=== PATIENT | male | born 1995 | race African-American/Black ===

== ENCOUNTER → 2020-05-24 | Outpatient (CLI) | payer OTHER ==
[2020-05-24 08:03] LABS: BASO # 0.1 x10^3/uL (0.0-0.2); BASO % 1 % (0-3); EOS # 0.4 x10^3/uL (0.0-0.7); EOS % 4 % (0-3); HEMOGLOBIN 15.6 g/dL (13.0-17.5); LYMPH # 3.2 x10^3/uL (1.0-4.8); LYMPH % 38 % (24-48); MEAN CORPUSCULAR HEMOGLOBIN 30 pg (25-35); MEAN CORPUSCULAR HGB CONC 34 g/dL (31-37); MEAN CORPUSCULAR VOLUME 87 fL (79-100); MONO # 0.7 x10^3/uL (0.0-1.1); MONO % 9 % (0-9); NEUT % 48 % (31-73); PLATELET COUNT 277 x10^3/uL (140-400); RED BLOOD COUNT 5.27 x10^6/uL (4.30-5.70); RED CELL DISTRIBUTION WIDTH 13.1 % (11.5-14.5); WHITE BLOOD COUNT 8.4 x10^3/uL (4.0-11.0)
[2020-05-24 08:25] LABS: ALBUMIN 3.9 g/dL (3.4-5.0); ALBUMIN/GLOBULIN RATIO 1.1 (1.0-1.7); CALCIUM 9.7 mg/dL (8.5-10.1); CHOLESTEROL/HDL RATIO 4.6; CREATININE 0.8 mg/dL (0.7-1.3); TOTAL BILIRUBIN 0.4 mg/dL (0.2-1.0); TOTAL PROTEIN 7.4 g/dL (6.4-8.2)
[2020-05-24 08:26] LABS: FREE T4 1.17 ng/dL (0.76-1.46); THYROID STIM HORMONE (TSH) 1.117 uIU/mL (0.358-3.74)
== END | disposition home or self-care (01) ==
LOC: LAB 07:32
PROVIDERS: ATTEND Family Medicine
DX: I10 Essential (primary) hypertension (principal)
CPT/HCPCS: 36415; 80053; 80061; 84439; 84443; 85025

== ENCOUNTER → 2020-06-01 | Outpatient (CLI) | payer OTHER ==
[2020-06-01 10:22] LABS: DIRECT BILIRUBIN 0.2 mg/dL (0.0-0.2); TOTAL BILIRUBIN 0.6 mg/dL (0.2-1.0); TOTAL PROTEIN 8.2 g/dL (6.4-8.2)
== END | disposition home or self-care (01) ==
LOC: LAB 07:31
PROVIDERS: ATTEND Family Medicine
DX: R94.5 Abnormal results of liver function studies (principal)
CPT/HCPCS: 36415; 80076; 86704; 86803; 87340

== ENCOUNTER → 2020-06-17 | Outpatient (CLI) | payer OTHER ==
[2020-06-17 09:08] LABS: CALCIUM 9.5 mg/dL (8.5-10.1); CREATININE 0.8 mg/dL (0.7-1.3); POTASSIUM 3.5 mmol/L (3.5-5.1)
== END | disposition home or self-care (01) ==
LOC: LAB 08:15
PROVIDERS: ATTEND Nurse Practitioner Gerontology
DX: I10 Essential (primary) hypertension (principal)
CPT/HCPCS: 36415; 80048

== ENCOUNTER → 2020-06-22 | Outpatient (CLI) | payer OTHER ==
--- NOTE | 2020-06-22 09:20 | RAD ---
Limited abdominal ultrasound INDICATION: Elevated liver function tests TECHNIQUE: Grayscale and color Doppler imaging of the right upper quadrant abdomen was performed. FINDINGS: The liver measures 15.7 cm and shows diffuse increased echogenicity compatible with moderate fatty infiltration. No nodular contour or masses are identified. The gallbladder is contracted and shows variable wall thickness with no obvious gallbladder wall thickening. Negative sonographic Nur sign. No stones or sludge identified. No intra or extrahepatic biliary dilation with the common bile duct measuring 1.6 mm. Visualized pancreas is unremarkable. The IVC is unremarkable. Abdominal aorta is partially obscured by bowel gas. Normal caliber in the visualized portions proximally. IMPRESSION: 1. Fatty liver. 2. Contracted gallbladder. This despite patient being in a reported fasting state. If gallbladder dysfunction is suspected, a HIDA scan could be considered in further evaluation. Electronically signed by: Vinay Blevins MD (06/22/2020 9:18 AM) [id number]
== END | disposition home or self-care (01) ==
LOC: US 08:00
PROVIDERS: ATTEND Family Medicine
DX: K76.0 Fatty (change of) liver, not elsewhere classified (principal); R94.5 Abnormal results of liver function studies
CPT/HCPCS: 76705

== ENCOUNTER → 2020-07-06 | Outpatient (CLI) | payer OTHER ==
--- NOTE | 2020-07-06 11:38 | CARD ---
MR#: [id number] Date of Study: 07/06/2020 Ordering Physician: VALERIE BEST, Referring Physician: VALERIE BEST, Tech: Rocio Slade [facility] APPROVED REPORT EXAM: Two-dimensional and M-mode echocardiogram with Doppler and color Doppler. Other Information Quality : Good INDICATION Hypertension/HCVD 2D DIMENSIONS RVDd2.6 (2.9-3.5cm)Left Atrium(2D)3.1 (1.6-4.0cm) IVSd1.8 (0.7-1.1cm)Aortic Root(2D)3.0 (2.0-3.7cm) LVDd4.2 (3.9-5.9cm)LVOT Diameter2.3 (1.8-2.4cm) PWd1.3 (0.7-1.1cm)LVDs2.5 (2.5-4.0cm) FS (%) 30.0 %SV54.2 ml LVEF(%)60.0 (>50%) Aortic Valve AoV Peak Isidro.147.5cm/sAoV VTI21.4cm AO Peak GR.8.7mmHgLVOT Peak Isidro.108.0cm/s AO Mean GR.5mmHgAVA (VMAX)2.97cm2 RAYSHAWN (VTI)3.60cm2 Mitral Valve MV E Cfsvfsdq483.4cm/sMV DECEL [id number] MV A Xemzyaqk35.0cm/sE/A Ratio2.0 Pulmonary Vein S1 Bdafmyke89.8cm/sD2 Dbirmrip96.5cm/s LEFT VENTRICLE The left ventricle is normal size. There is normal left ventricular wall thickness. The left ventricu lar systolic function is normal and the ejection fraction is within normal range. The Ejection Fracti on is 55-60%. There is normal LV segmental wall motion. The left ventricular diastolic function and f illing is normal for age. RIGHT VENTRICLE The right ventricle is normal size. The right ventricular systolic function is normal. ATRIA The left atrium size is normal. The right atrium size is normal. The interatrial septum is intact wit h no evidence for an atrial septal defect or patent foramen ovale as noted on 2-D or Doppler imaging. AORTIC VALVE The aortic valve is normal in structure and function. Doppler and Color Flow revealed no significant aortic regurgitation. There is no significant aortic valvular stenosis. MITRAL VALVE The mitral valve is normal in structure and function. There is no evidence of mitral valve prolapse. There is no mitral valve stenosis. Doppler and Color Flow revealed no mitral valve regurgitation note d. TRICUSPID VALVE The tricuspid valve is normal in structure and function. Doppler and Color Flow revealed no tricuspid valve regurgitation noted. There is no tricuspid valve stenosis. PULMONIC VALVE The pulmonary valve is normal in structure and function. Doppler and Color Flow revealed trace pulmon ic valvular regurgitation. There is no pulmonic valvular stenosis. GREAT VESSELS The aortic root is normal in size. The ascending aorta is normal in size. The IVC is normal in size a nd collapses >50% with inspiration. PERICARDIAL EFFUSION There is no evidence of significant pericardial effusion. Critical Notification Critical Value: No <Conclusion> The left ventricle is normal size. The left ventricular systolic function is normal and the ejection fraction is within normal range. The Ejection Fraction is 55-60%. There is normal LV segmental wall motion. There is normal left ventricular wall thickness. Doppler and Color Flow revealed no significant aortic regurgitation. There is no significant aortic valvular stenosis. Doppler and Color Flow revealed no mitral valve regurgitation noted. Doppler and Color Flow revealed no tricuspid valve regurgitation noted. Signed by : Ramiro Robert MD Electronically Approved : 07/06/2020 11:38:02
== END ==
LOC: ECHO 09:50
PROVIDERS: ATTEND Internal Medicine Cardiovascular Disease
DX: I10 Essential (primary) hypertension (principal)
CPT/HCPCS: 93306